=== PATIENT | male | born 1960 | race African-American/Black ===

== ENCOUNTER 2020-02-02 11:00 | Emergency (ER) | payer OTHER ==
[~2020-02-02] VITALS: Ht 167.6 cm; Wt 92.1 kg
[~2020-02-02 11:00] MED LIST: TRICOR48 MG PO
[2020-02-02] MEDS ORDERED: VYTORIN 10-401 EACH PO (11:11)
[2020-02-02] MEDS ORDERED: TRICOR145 MG PO (11:11)
== END 2020-02-02 13:18 | disposition home or self-care (01) ==
LOC: ER 11:00
DX: M94.0 Chondrocostal junction syndrome [Tietze] (principal)

== ENCOUNTER 2021-04-23 11:16 | Outpatient (CLI) | payer OTHER ==
[~2021-04-23 11:16] MED LIST changes: +TRICOR145 MG PO; +VYTORIN 10-401 EACH PO
== END 2021-04-23 11:26 | disposition home or self-care (01) ==
LOC: TOM 11:16
PROVIDERS: ATTEND General Practice
DX: G93.89 Other specified disorders of brain (principal); R22.0 Localized swelling, mass and lump, head; H66.92 Otitis media, unspecified, left ear; G44.89 Other headache syndrome

== ENCOUNTER 2021-11-12 08:36 | Outpatient (CLI) | payer OTHER | END 2021-11-12 08:43 | disposition home or self-care (01) | LOC: SONOGRAMA 08:36 | PROVIDERS: ATTEND General Practice | DX: R94.5 Abnormal results of liver function studies (principal); K76.0 Fatty (change of) liver, not elsewhere classified; Z13.89 Encounter for screening for other disorder; Z13.1 Encounter for screening for diabetes mellitus; Z13.29 Encounter for screening for other suspected endocrine disorder; E07.9 Disorder of thyroid, unspecified ==

== ENCOUNTER 2022-04-13 12:56 | Outpatient (CLI) | payer OTHER | END 2022-04-13 12:57 | disposition home or self-care (01) | LOC: NUCLEAR 12:56 | PROVIDERS: ATTEND Urology | DX: C64.1 Malignant neoplasm of right kidney, except renal pelvis (principal) | CPT/HCPCS: 78707; A9539 ==

== ENCOUNTER 2022-04-26 07:12 | Outpatient (CLI) | payer OTHER | END 2022-04-26 07:14 | disposition home or self-care (01) | LOC: NUCLEAR 07:12 | PROVIDERS: ATTEND Urology | DX: I25.10 Atherosclerotic heart disease of native coronary artery without angina pectoris (principal); I65.1 Occlusion and stenosis of basilar artery | CPT/HCPCS: 78452; 93017; 93880; A9500; J0153 ==

== ENCOUNTER 2022-08-30 02:56 | Emergency (ER) | payer OTHER ==
[~2022-08-30] VITALS: Ht 167.6 cm; Wt 84.8 kg
== END 2022-08-30 11:26 | disposition home or self-care (01) ==
LOC: ER 02:56
DX: R10.84 Generalized abdominal pain (principal); R11.2 Nausea with vomiting, unspecified; N20.1 Calculus of ureter
CPT/HCPCS: 36415; 74177; Q9965

== ENCOUNTER 2022-09-07 07:45 | Inpatient (IN) | payer OTHER ==
[~2022-09-07] VITALS: Ht 167.6 cm; Wt 84.8 kg
[2022-09-07] MEDS ORDERED: TAMS0.4C PO (09:48)
[2022-09-07] MEDS ORDERED: TRICOR145 MG PO (09:48)
== END 2022-09-12 12:39 | disposition home or self-care (01) | DRG 658 ==
LOC: O/R 09-10 05:34 → SURH 09-10 06:00 → SURG 09-10 12:59
PROVIDERS: ADMIT Urology; ATTEND Urology
PROC: 0TT04ZZ Resection of Right Kidney, Percutaneous Endoscopic Approach (ICD-10-PCS; principal; 2022-09-10 06:00)
DX: C64.1 Malignant neoplasm of right kidney, except renal pelvis (principal); Z20.822 Contact with and (suspected) exposure to COVID-19

== ENCOUNTER 2023-03-22 07:01 | Outpatient (CLI) | payer OTHER ==
[~2023-03-22 07:01] MED LIST changes: +TAMS0.4C PO
== END 2023-03-22 07:20 | disposition home or self-care (01) ==
LOC: TOM 07:01
PROVIDERS: ATTEND Urology
DX: C64.1 Malignant neoplasm of right kidney, except renal pelvis (principal)

== ENCOUNTER 2023-08-03 07:06 | Outpatient (CLI) | payer OTHER | END 2023-08-03 07:12 | disposition home or self-care (01) | LOC: SONOGRAMA 07:06 | PROVIDERS: ATTEND General Practice | DX: K80.20 Calculus of gallbladder without cholecystitis without obstruction (principal); N42.9 Disorder of prostate, unspecified; N20.0 Calculus of kidney; C64.1 Malignant neoplasm of right kidney, except renal pelvis; K80.80 Other cholelithiasis without obstruction ==

== ENCOUNTER 2023-10-03 08:09 | Outpatient (CLI) | payer OTHER | END 2023-10-03 08:19 | disposition home or self-care (01) | LOC: RAD 08:09 | PROVIDERS: ATTEND Urology | DX: C64.9 Malignant neoplasm of unspecified kidney, except renal pelvis (principal) ==

== ENCOUNTER 2023-10-03 08:48 | Outpatient (CLI) | payer OTHER | END 2023-10-03 09:38 | disposition home or self-care (01) | LOC: TOM 08:48 | PROVIDERS: ATTEND Urology | DX: C64.9 Malignant neoplasm of unspecified kidney, except renal pelvis (principal) ==

== ENCOUNTER 2024-02-24 07:04 | Outpatient (CLI) | payer OTHER | END 2024-02-24 07:24 | disposition home or self-care (01) | LOC: MRI 07:04 | PROVIDERS: ATTEND General Practice | DX: M54.50 Low back pain, unspecified (principal); N20.9 Urinary calculus, unspecified; Z85.528 Personal history of other malignant neoplasm of kidney | CPT/HCPCS: 72148 ==

== ENCOUNTER 2025-04-01 11:56 | Outpatient (CLI) | payer OTHER | END 2025-04-01 11:58 | disposition home or self-care (01) | LOC: SONOGRAMA 11:56 | PROVIDERS: ATTEND Urology | DX: N18.9 Chronic kidney disease, unspecified (principal); C64.9 Malignant neoplasm of unspecified kidney, except renal pelvis; N20.0 Calculus of kidney ==